=== PATIENT | female | born 1980 | race Caucasian/White ===

== ENCOUNTER 2016-07-12 09:16 | Day surgery (SDC) | payer MEDICARE ==
[~2016-07-12] VITALS: Ht 170.2 cm; Wt 64.1 kg
[~2016-07-12 09:16] MED LIST: CeFAZolin 1 GM/DEXTROSE 50 ML IV ONE; LORazepam 2 MG/ML VIAL IVP ONE; SODIUM CHLORIDE 0.9% 1,000 ML IV ONE
[2016-07-12] MEDS ORDERED: CeFAZolin 1 GM/DEXTROSE 50 ML IV ONE (09:33)
[2016-07-12 09:43] LABS: BASOPHILS % (AUTO) 0.5 % (0.0-2.0); EOSINOPHILS % (AUTO) 0.2 % (1.0-6.0); HEMOGLOBIN 10.6 g/dL (12.0-16.0); LYMPHOCYTES # (AUTO) 1.1 K/uL (1.0-4.8); LYMPHOCYTES % (AUTO) 23.3 % (22.0-44.0); MEAN CORPUSCULAR HEMOGLOBIN 30.6 pg (26.0-34.0); MEAN CORPUSCULAR HGB CONC 32.1 G/dL (31.0-37.0); MEAN CORPUSCULAR VOLUME 95 fL (80-100); MONOCYTES # (AUTO) 0.6 K/uL (0.1-1.0); MONOCYTES % (AUTO) 11.5 % (2.0-9.0); NEUTROPHILS # (AUTO) 3.1 K/uL (1.8-7.7); NEUTROPHILS % (AUTO) 64.5 % (40.0-70.0); PLATELET COUNT (AUTO) 636 K/uL (150-450); RED BLOOD CELL COUNT(AUTO) 3.47 MIL/uL (4.00-5.20); RED CELL DISTRIBUTION WIDTH 16.7 % (11.5-14.5); WHITE BLOOD COUNT (AUTO) 4.8 K/uL (4.5-11.0)
[2016-07-12 09:53] LABS: ANION GAP 13 mmol/L (8-16); CARBON DIOXIDE 27 mmol/L (22-29); CHLORIDE 101 mmol/L (98-107); GLOMERULAR FILTR. RATE CALC > 60 mL/min (>60); POTASSIUM 4.1 mmol/L (3.5-5.1); SODIUM SERUM 141 mmol/L (136-145); UREA NITROGEN, BLOOD 9 mg/dL (7-18)
[2016-07-12 09:56] LABS: INR 1.1 (0.9-1.1); PROTHROMBIN TIME 11.4 SEC (9.4-11.6)
[2016-07-12] MEDS ORDERED: LIDOCAINE HCL/PF 1% 30 ML VIAL ONE (14:36)
[2016-07-12] MEDS ORDERED: SODIUM CHLORIDE 0.9% 500 ML IV ONE (17:15)
[2016-07-12] MEDS ORDERED: GuaiFENesin/CODEINE [SUGAR FREE] 200-20MG/10 ML SYRUP UDCUP PO ONE (17:15)
[2016-07-12] MEDS ORDERED: FentaNYL CITRATE-PF 100 MCG/2 ML VIAL IVP ONE (23:56)
[2016-07-12] MEDS ORDERED: MIDAZOLAM HCL 2 MG/2 ML VIAL IVP ONE (23:56)
== END 2016-07-12 18:45 | disposition home or self-care (01) ==
LOC: RADMN 09:16
PROVIDERS: ATTEND Radiology Diagnostic Radiology
DX: C34.12 Malignant neoplasm of upper lobe, left bronchus or lung (principal); Z90.721 Acquired absence of ovaries, unilateral; Z98.890 Other specified postprocedural states; Z79.01 Long term (current) use of anticoagulants
CPT/HCPCS: 0340T; 36415; 80048; 85025; 85610; 85730; J0690; J2250; J3010; J3490; J7030; J7040; 77012

== ENCOUNTER 2016-08-08 06:30 | Day surgery (SDC) | payer MEDICARE ==
[~2016-08-08] VITALS: Ht 168.9 cm; Wt 60.5 kg
[~2016-08-08 06:30] MED LIST changes: +FentaNYL CITRATE-PF 100 MCG/2 ML VIAL IVP ONE; +KETAMINE HCL 50 MG/ML 10 ML VIAL IVP ONE; -LORazepam 2 MG/ML VIAL IVP ONE; +METOCLOPRAMIDE HCL 5 MG/ML 2 ML VIAL IVP ONE; +MIDAZOLAM HCL 2 MG/2 ML VIAL IVP ONE; +ONDANSETRON HCL 4 MG/2 ML VIAL IVP ONE
[2016-08-08] MEDS ORDERED: LORazepam 2 MG/ML VIAL ONE (07:18)
[2016-08-08] MEDS ORDERED: SODIUM CHLORIDE 0.9% 1,000 ML IV ONE ×3 (07:30→09:45)
[2016-08-08] MEDS ORDERED: CeFAZolin 1 GM/DEXTROSE 50 ML IV ONE (07:30)
[2016-08-08] MEDS ORDERED: LORazepam 2 MG/ML VIAL IVP PRN (07:30)
[2016-08-08 07:32] LABS: INR 1.2 (0.9-1.1); PROTHROMBIN TIME 12.3 SEC (9.4-11.6)
[2016-08-08] MEDS ORDERED: SODIUM CHLORIDE 0.9% 100 ML ONE (07:55)
[2016-08-08] MEDS ORDERED: IOVERSOL 350 MG/ML 100 ML VIAL ONE (07:55)
[2016-08-08] MEDS ORDERED: LIDOCAINE HCL/PF 1% 30 ML VIAL ONE (08:34)
[2016-08-08] MEDS ORDERED: OxyCODONE HCL/ACETAMINOPHEN 5-325 MG TABLET PO SCH (10:00)
[2016-08-08] MEDS ORDERED: HYDROmorphone 2 MG/ML SYRINGE IVP PRN ×2 (10:00→10:15)
[2016-08-08] MEDS ORDERED: MEPERIDINE-PF 25 MG/ML SYRINGE IVP PRN (10:15)
[2016-08-08] MEDS ORDERED: FentaNYL CITRATE-PF 100 MCG/2 ML VIAL IVP PRN (10:15)
[2016-08-08] MEDS ORDERED: OXYGEN THERAPY IH SCH (10:15)
== END 2016-08-08 12:30 | disposition home or self-care (01) ==
LOC: SDS 06:30 → EDSTATUS 07:00 → SDS 12:30
PROVIDERS: ATTEND Radiology Diagnostic Radiology
DX: C34.11 Malignant neoplasm of upper lobe, right bronchus or lung (principal); C50.912 Malignant neoplasm of unspecified site of left female breast; Z79.01 Long term (current) use of anticoagulants
CPT/HCPCS: 0340T; 36415; 70470; 85049; 85610; C2618; J0690; J2060; J3490; J7030; J7050; Q9967; J2250; J2405; J2765; J3010